=== PATIENT | female | born 1990 | race Hispanic/Latino ===

== ENCOUNTER 2020-12-08 13:31 | Emergency (ER) | payer OTHER ==
[~2020-12-08] VITALS: Ht 152.4 cm; Wt 72.6 kg
[2020-12-08] MEDS ORDERED: FAMOTIDINE 20 MG TAB PO ONE (14:00)
== END 2020-12-08 17:07 | disposition home or self-care (01) ==
LOC: EDBD 13:31 → ER 14:23
DX: R10.13 Epigastric pain (principal); R07.89 Other chest pain; K21.9 Gastro-esophageal reflux disease without esophagitis; R91.8 Other nonspecific abnormal finding of lung field; Z20.822 Contact with and (suspected) exposure to COVID-19
CPT/HCPCS: 71045; 93005; 99283; U0002